=== PATIENT | female | born 1975 | race Hispanic/Latino ===

== ENCOUNTER 2020-09-19 06:45 | Day surgery (SDC) | payer BC, OTHER ==
[2020-09-15 16:36] LABS: BASOPHILS % (AUTO) 0.5 % (0.0-5.0); EOSINOPHILS % (AUTO) 0.8 % (0.0-8.0); HEMATOCRIT 35.3 % (36-48); LYMPHOCYTES % (AUTO) 31.6 % (21.0-51.0); MEAN CORPUSCULAR HEMOGLOBIN 29.7 pg (27.0-33.0); MEAN CORPUSCULAR HGB CONC 32.3 g/dL (32.0-36.0); MEAN CORPUSCULAR VOLUME 91.9 fL (79-99); MONOCYTES % (AUTO) 5.4 % (3.0-13.0); NEUTROPHILS % (AUTO) 61.4 % (40.0-77.0); PLATELET COUNT (AUTO) 359 K/uL (130-400); RED BLOOD CELL COUNT(AUTO) 3.84 MIL/uL (4.00-5.50); RED CELL DISTRIBUTION WIDTH 12.7 % (11.0-15.5); WHITE BLOOD COUNT (AUTO) 9.9 K/uL (4.8-10.8)
[2020-09-16] MEDS: CEFAZOLIN SODIUM 1 GM VIAL IVP SCH (07:15)
[2020-09-18 09:19] VITALS: BP 117/68
[~2020-09-19] VITALS: Ht 163.8 cm; Wt 91.3 kg
[2020-09-19] VITALS (18 sets, daily range): BP systolic 92–118; BP diastolic 57–81
[~2020-09-19 06:45] MED LIST: CALDOLOR 800MG+NS 250ML 250 ML IV SCH; LEVO25TA54 PO
[2020-09-19] MEDS ORDERED: LACTATED RINGERS 1000ML 1,000 ML IV ONE (07:13)
[2020-09-19] MEDS ORDERED: LIDOCAINE PF 100MG/5ML (2%) SYRINGE 5ML ONE (08:02)
[2020-09-19] MEDS ORDERED: SUCCINYLCHOLINE CHLORIDE 20 MG/ML 10 ML VIAL ONE (08:02)
[2020-09-19] MEDS ORDERED: ROCURONIUM 10MG/1ML SYR 10 MG/ML ML ONE (08:03)
[2020-09-19] MEDS ORDERED: MIDAZOLAM HCL 1 MG/ML 2ML VIAL ONE (08:03)
[2020-09-19] MEDS ORDERED: FENTANYL CITRATE PF 50 MCG/1 ML 2ML VIAL ONE (08:03)
[2020-09-19] MEDS ORDERED: PROPOFOL 10 MG/ML 20ML VIAL IV ONE (08:03)
[2020-09-19] MEDS: CEFAZOLIN SODIUM 1 GM VIAL IVP SCH (09:35)
[2020-09-19] MEDS ORDERED: NEOSTIGMINE 5MG/5ML SYR IV ONE (09:51)
[2020-09-19] MEDS ORDERED: GLYCOPYRROLATE 1 MG/5 ML SYRINGE ONE (09:51)
[2020-09-19] MEDS ORDERED: SUGAMMADEX SODIUM 200 MG/2 ML VIAL IV ONE (10:02)
[2020-09-19] MEDS ORDERED: MEPERIDINE-PF 25 MG/ML SYG ONE (10:05)
[2020-09-19] MEDS ORDERED: ALBUTEROL 0.083% 2.5 MG/3 ML INH IH ONE (11:05)
== END 2020-09-19 11:55 | disposition home or self-care (01) ==
LOC: DAH 06:45
PROVIDERS: ATTEND Obstetrics & Gynecology
DX: N92.1 Excessive and frequent menstruation with irregular cycle (principal); N85.4 Malposition of uterus; Z20.828 Contact with and (suspected) exposure to other viral communicable diseases; J44.9 Chronic obstructive pulmonary disease, unspecified; K21.9 Gastro-esophageal reflux disease without esophagitis; F17.200 Nicotine dependence, unspecified, uncomplicated; E66.9 Obesity, unspecified
CPT/HCPCS: 36415 ×2; 58563; 85025; 86850 ×2; 86900 ×2; 86901 ×2; 94640; A4215; A4216; A4221; A4222; A4223 ×2; A4351; A4355; A4663; C9803; J0330; J0690; J2001; J2175; J2250; J2704; J2710; J3010; J3490; J7030 ×2; J7120 ×2; U0003; J1741